=== PATIENT | female | born 1975 | race Two or more races ===

== ENCOUNTER 2024-09-09 15:54 | Emergency (ER) | payer OTHER ==
[~2024-09-09] VITALS: Ht 170.2 cm; Wt 71.2 kg
[2024-09-09] MEDS ORDERED: GRALISE600 MG PO (15:59)
[2024-09-09] MEDS ORDERED: CONZIP100 MG (15:59)
[2024-09-09] MEDS ORDERED: CLONAZEPAM2 M1 PO (16:00)
[2024-09-09] MEDS ORDERED: WELLBUTRIN SR100 MG (16:00)
[2024-09-09] MEDS ORDERED: COZAAR25 MG (16:01)
[2024-09-09] MEDS ORDERED: SINGULAIR10 MG PO (16:01)
[2024-09-09] MEDS ORDERED: ORPHENADRINE CITRATE 30 MG/ML AMPUL IM ONE (18:00)
[2024-09-09] MEDS ORDERED: KETOROLAC TROMETHAMINE 60 MG VIAL IM ONE (18:00)
[2024-09-09] MEDS ORDERED: DEXAMETHASONE SODIUM PHOSPHATE 4 MG/ML VIAL IM ONE (18:00)
[2024-09-09] MEDS ORDERED: ORPHENADRINE CITRATE 100 MG TABLET PO STA (18:16)
== END 2024-09-09 18:20 | disposition home or self-care (01) ==
LOC: ER 15:56
DX: M54.50 Low back pain, unspecified (principal); Z91.030 Bee allergy status; I10 Essential (primary) hypertension; J45.909 Unspecified asthma, uncomplicated; M32.8 Other forms of systemic lupus erythematosus; M79.7 Fibromyalgia; M06.8A Other specified rheumatoid arthritis, other specified site

== ENCOUNTER → 2024-10-29 | Emergency (ER) | payer OTHER ==
[~2024-10-29] MED LIST: CLONAZEPAM2 M1 PO; CONZIP100 MG; COZAAR25 MG; GRALISE600 MG PO; SINGULAIR10 MG PO; WELLBUTRIN SR100 MG
== END | disposition left against medical advice (07) ==
LOC: ER 14:37
DX: Z53.21 Procedure and treatment not carried out due to patient leaving prior to being seen by health care provider (principal)

== ENCOUNTER 2024-11-17 13:08 | Inpatient (IN) | payer OTHER ==
[~2024-11-17] VITALS: Ht 170.2 cm; Wt 66.7 kg
--- NOTE | 2024-11-17 13:28 | NUR ---
SE RECIBE PTE ALERTA Y ORIENTADA X3 EN AMBULANCIA. REFIERE ABSCESO EN GLUTEO LILIAM Y FIEBRE HACE 3 COVARRUBIAS. SE MIDE SV Y SE UBICA
[2024-11-17] MEDS ORDERED: 0.9 % SODIUM CHLORIDE 1,000 ML IV STA (13:53)
--- NOTE | 2024-11-17 14:43 | NUR ---
SE ORIENTA PTE SOBRE TX A SEGUIR, EL MISMO REFIERE ENTENDER. SE MANA MUESTRA DE LAB, SE COLOCA HL EN CANALIZACION #22 DE AMBULANCIA Y SE COLOCA IV FLUIDS
[2024-11-17 15:16] LABS: CALCIUM 8.5 mg/dL (8.5-10.1); CREATININE SERUM 0.62 mg/dL (0.55-1.02); GFR 102.31; POTASSIUM 3.21 mEq/L (3.5-5.1)
[2024-11-17] MEDS ORDERED: KETOROLAC TROMETHAMINE 30 MG VIAL IV ONE (15:30)
[2024-11-17 15:32] LABS: PH,URINE 6.5 (5.0-8.0); URINE APPEARANCE Cloudy; URINE BILIRRUBIN Negative (NEGATIVE); URINE BLOOD Negative; URINE COLOR Yellow; URINE GLUCOSE Negative (NEGATIVE); URINE KETONE Negative (NEGATIVE); URINE LEUKOCYTE Small; URINE NITRATE Positive; URINE PROTEIN Trace (NEGATIVE); URINE UROBILINOGEN 0.2 E.U./dl
[2024-11-17 15:37] LABS: URINE CAST 1.61 uL (0.0-1.40); URINE EPITHELIAL CELLS 22.4 uL (0.0-38.8); URINE RBC 8.8 uL (0.0-20.8)
[2024-11-17] MEDS ORDERED: KETOROLAC TROMETHAMINE 30 MG VIAL ONE ×2 (15:43→22:07)
[2024-11-17] MEDS ORDERED: BUTALB/ACETAMINOPHEN/CAFFEINE 1 TAB TABLET PO ONE (15:57)
[2024-11-17] MEDS ORDERED: BUTALB/ACETAMINOPHEN/CAFFEINE 1 TAB TABLET PO STA (16:02)
[2024-11-17 16:22] LABS: HEMATOCRIT 30.3 % (36.0-45.00); HEMOGLOBIN 9.5 g/dL (12.0-15.00); MEAN CORPUSCULAR HEMOGLOBIN 22.5 pg (27.00-32.0); MEAN CORPUSCULAR HGB CONC 31.3 g/dl (32.0-36.0); PLATELET COUNT 425 K/uL (150-450); RED BLOOD COUNT 4.21 M/uL (4.00-6.00); RED CELL DISTRIBUTION WIDTH 17.3 % (11.5-14.5)
[2024-11-17 16:43] LABS: URINE BACTERIA > 9821.5 uL (0.0-1933)
[2024-11-17] MEDS ORDERED: CEFTRIAXONE SODIUM 2,000 MG VIAL ONE (17:11)
[2024-11-17] MEDS ORDERED: CEFTRIAXONE SODIUM 2,000 MG VIAL IV ONE (17:15)
[2024-11-17] MEDS ORDERED: KETOROLAC TROMETHAMINE 15 MG VIAL IU ONE (22:00)
[2024-11-17] MEDS ORDERED: MORPHINE SULFATE 4 MG/ML CARTRIDGE IV ONE (22:00)
[2024-11-17] MEDS ORDERED: KETOROLAC TROMETHAMINE 15 MG VIAL IV STA (22:20)
[2024-11-17] MEDS ORDERED: ACETAMINOPHEN 500 MG GEL..CAP PO PRN (23:30)
[2024-11-17] MEDS ORDERED: POTASSIUM BICARBONATE/CIT AC 25 MEQ TABLET.EFF PO ONE (23:30)
[2024-11-17] MEDS ORDERED: 0.9 % SODIUM CHLORIDE 1,000 ML IV SCH (23:30)
[2024-11-18 02:30] VITALS: BP 95/65; O2SAT 100
[2024-11-18 04:25] LABS: INR 0.98; PARTIAL THROMBOPLASTIN TIME 33.9 SECONDS (22.0-34.0); PROTHROMBIN TIME 10.7 SECONDS (9.0-11.5)
[2024-11-18 04:40] VITALS: BP 85/51; O2SAT 95
[2024-11-18] MEDS ORDERED: BUTALB/ACETAMINOPHEN/CAFFEINE 1 TAB TABLET PO PRN (08:30)
[2024-11-18] MEDS ORDERED: LOSARTAN POTASSIUM 50 MG TABLET PO SCH (09:00)
[2024-11-18] MEDS ORDERED: ENOXAPARIN SODIUM 40 MG/0.4 ML SYRINGE SUBCUTANEO SCH (09:00)
[2024-11-18] MEDS ORDERED: BUPROPION HCL 150 MG TABLET.SA PO SCH (09:00)
[2024-11-18] MEDS ORDERED: GABAPENTIN 300 MG CAPSULE PO SCH (09:00)
[2024-11-18] MEDS ORDERED: HYDROXYCHLOROQUINE SULFATE 200 MG TABLET PO SCH (09:00)
[2024-11-18] MEDS ORDERED: CEFTRIAXONE SODIUM 2,000 MG in 0.9 % SODIUM CHLORIDE 100 ML IV SCH (09:00)
[2024-11-18] MEDS ORDERED: FAMOTIDINE/PF 20 MG in 0.9 % SODIUM CHLORIDE 8 ML IV PUSH SCH (09:00)
[2024-11-18 09:15] VITALS: BP 94/54; O2SAT 100
[2024-11-18] MEDS ORDERED: HYDROCHLOROTHIAZIDE 25 MG TABLET PO NR (10:30)
[2024-11-18] MEDS ORDERED: NIFEDIPINE 60 MG TAB.SA.OSM PO NR (10:30)
[2024-11-18] MEDS ORDERED: FAMOTIDINE/PF 20 MG/2 ML VIAL ONE (12:00)
[2024-11-18] MEDS ORDERED: POTASSIUM BICARBONATE/CIT AC 25 MEQ TABLET.EFF PO SCH (13:00)
[2024-11-18] MEDS ORDERED: CLONAZEPAM 1 MG TABLET PO SCH (17:00)
[2024-11-18] MEDS ORDERED: MONTELUKAST SODIUM 10 MG TABLET PO SCH (17:00)
[2024-11-18] MEDS ORDERED: LACTOBACILLUS ACIDOPHILUS 1 CAP CAP PO SCH (17:00)
[2024-11-18 18:30] VITALS: BP 86/49
[2024-11-18] MEDS ORDERED: MORPHINE SULFATE 2 MG/ML CARTRIDGE IV PRN (18:30)
[2024-11-18] MEDS ORDERED: TRAZODONE HCL 50 MG TABLET PO SCH (21:00)
[2024-11-19 01:44] VITALS: BP 96/57
[2024-11-19] MEDS ORDERED: MEROPENEM 500 MG/VIAL VIAL IV SCH (08:00)
[2024-11-19 08:21] VITALS: BP 88/51; O2SAT 98
[2024-11-19] MEDS ORDERED: NIFEDIPINE 60 MG TAB.SA.OSM PO SCH (09:00)
[2024-11-19] MEDS ORDERED: HYDROCHLOROTHIAZIDE 25 MG TABLET PO SCH (09:00)
[2024-11-19 09:20] LABS: MEAN CELL VOLUME 71.3 fL (80.00-100.00); MEAN CORPUSCULAR HGB CONC 32.4 g/dl (32.0-36.0); PLATELET COUNT 318 K/uL (150-450); RED BLOOD COUNT 3.26 M/uL (4.00-6.00); RED CELL DISTRIBUTION WIDTH 17.4 % (11.5-14.5)
[2024-11-19 09:24] LABS: HEMATOCRIT 23.2 % (36.0-45.00)
[2024-11-19 09:25] LABS: HEMOGLOBIN 7.5 g/dL (12.0-15.00)
[2024-11-19 10:12] LABS: BILIRUBIN TOTAL 0.27 mg/dL (0.3-1.2); CALCIUM 8.2 mg/dL (8.5-10.1); CREATININE SERUM 0.54 mg/dL (0.55-1.02); GFR 119.99; GLOBULINA 3.5 G/DL (2.4-3.5); MAGNESIUM 2.2 mg/dL (1.8-2.4); PHOSPHOROUS 3.7 mg/dL (2.5-4.9); POTASSIUM 3.99 mEq/L (3.5-5.1); TOTAL PROTEIN 6.5 gm/dL (6.4-8.2)
[2024-11-19 10:15] LABS: C-REACTIVE PROTEIN 13.5 MG/DL (0.00-0.29)
[2024-11-19] MEDS ORDERED: MORPHINE SULFATE 4 MG/ML CARTRIDGE IV PRN (13:11)
[2024-11-19 17:00] VITALS: BP 100/60; O2SAT 100
[2024-11-19] MEDS ORDERED: POLYETHYLENE GLYCOL 3350 17 GM BLIST.PACK PO SCH (17:00)
[2024-11-19] MEDS ORDERED: CLONAZEPAM 1 MG TABLET PO SCH (17:00)
[2024-11-19 17:01] LABS: ob NEGATIVE (NEGATIVE)
[2024-11-20 02:03] VITALS: BP 82/42
[2024-11-20 06:36] LABS: HEMATOCRIT 27.3 % (36.0-45.00); MEAN CELL VOLUME 73.3 fL (80.00-100.00); MEAN CORPUSCULAR HEMOGLOBIN 23.3 pg (27.00-32.0); MEAN CORPUSCULAR HGB CONC 31.8 g/dl (32.0-36.0); PLATELET COUNT 330 K/uL (150-450); RED BLOOD COUNT 3.73 M/uL (4.00-6.00); RED CELL DISTRIBUTION WIDTH 17.6 % (11.5-14.5)
[2024-11-20 07:02] LABS: HEMOGLOBIN 8.7 g/dL (12.0-15.00)
[2024-11-20 08:46] LABS: URINE APPEARANCE Clear; URINE BILIRRUBIN Negative (NEGATIVE); URINE BLOOD Negative; URINE COLOR Yellow; URINE GLUCOSE Negative (NEGATIVE); URINE KETONE Negative (NEGATIVE); URINE LEUKOCYTE Negative; URINE NITRATE Negative; URINE PROTEIN Negative (NEGATIVE); URINE UROBILINOGEN 0.2 E.U./dl
[2024-11-20 08:48] LABS: URINE BACTERIA 18.3 uL (0.0-1933); URINE EPITHELIAL CELLS 16.5 uL (0.0-38.8); URINE RBC 4.1 uL (0.0-20.8); URINE WBC 10.7 uL (0.0-23.2)
[2024-11-20 09:01] VITALS: BP 101/65
[2024-11-20] MEDS ORDERED: CLONAZEPAM 1 MG TABLET PO SCH (10:29)
[2024-11-20] MEDS ORDERED: MORPHINE SULFATE 4 MG/ML CARTRIDGE IV PRN (10:41)
[2024-11-20 17:42] VITALS: BP 115/67
[2024-11-20] MEDS ORDERED: FAMOtidine 20 MG TABLET PO SCH (21:00)
[2024-11-21 08:56] VITALS: BP 95/58
[2024-11-21 17:30] VITALS: BP 121/75; O2SAT 98
[2024-11-22 02:36] VITALS: BP 108/64
[2024-11-22 07:47] LABS: HEMATOCRIT 28.3 % (36.0-45.00); HEMOGLOBIN 9.2 g/dL (12.0-15.00); MEAN CELL VOLUME 72.4 fL (80.00-100.00); MEAN CORPUSCULAR HEMOGLOBIN 23.5 pg (27.00-32.0); MEAN CORPUSCULAR HGB CONC 32.4 g/dl (32.0-36.0); PLATELET COUNT 363 K/uL (150-450); RED BLOOD COUNT 3.91 M/uL (4.00-6.00); RED CELL DISTRIBUTION WIDTH 17.1 % (11.5-14.5)
[2024-11-22 07:55] LABS: CALCIUM 9.2 mg/dL (8.5-10.1); CREATININE SERUM 0.5 mg/dL (0.55-1.02); GFR 131.13; POTASSIUM 4.92 mEq/L (3.5-5.1)
[2024-11-22 08:47] VITALS: BP 112/77
[2024-11-22] MEDS ORDERED: MORPHINE SULFATE 4 MG/ML CARTRIDGE IV PRN (14:30)
[2024-11-22 16:00] VITALS: BP 103/67
[2024-11-23 02:00] VITALS: BP 113/63
[2024-11-23 08:15] VITALS: BP 115/65
[2024-11-23 16:00] VITALS: BP 116/75; O2SAT 100
[2024-11-23] MEDS ORDERED: FLUCONAZOLE 100 MG TABLET PO SCH (17:00)
[2024-11-23] MEDS ORDERED: IPRATROPIUM BROMIDE 0.5 MG/2.5 ML AMPUL.NEB IH SCH (18:00)
[2024-11-24 01:37] VITALS: BP 102/67
[2024-11-24 07:11] LABS: HEMATOCRIT 29.1 % (36.0-45.00); HEMOGLOBIN 9.6 g/dL (12.0-15.00); MEAN CELL VOLUME 72.5 fL (80.00-100.00); MEAN CORPUSCULAR HEMOGLOBIN 23.9 pg (27.00-32.0); MEAN CORPUSCULAR HGB CONC 32.9 g/dl (32.0-36.0); PLATELET COUNT 415 K/uL (150-450); RED BLOOD COUNT 4.01 M/uL (4.00-6.00); RED CELL DISTRIBUTION WIDTH 17.7 % (11.5-14.5)
[2024-11-24 08:40] VITALS: BP 108/67
== END 2024-11-24 20:22 | disposition home or self-care (01) | DRG 690 ==
LOC: ER 13:08 → MEDJ 23:27 → MEDI 11-19 10:55 → MEDJ 11-24 15:14
PROVIDERS: Emergency Medicine; Internal Medicine Infectious Disease; ADMIT Student in an Organized Health Care Education/Training Program; ATTEND Student in an Organized Health Care Education/Training Program
PROC: BW21ZZZ Computerized Tomography (CT Scan) of Abdomen and Pelvis (ICD-10-PCS; 2024-11-17)
PROC: 8E0ZXY6 Isolation (ICD-10-PCS; principal; 2024-11-19)
PROC: 302A3N1 Transfusion of Nonautologous Red Blood Cells into Bone Marrow, Percutaneous Approach (ICD-10-PCS; 2024-11-19)
PROC: 3E0F7GC Introduction of Other Therapeutic Substance into Respiratory Tract, Via Natural or Artificial Opening (ICD-10-PCS; 2024-11-23)
PROC: 02HV33Z Insertion of Infusion Device into Superior Vena Cava, Percutaneous Approach (ICD-10-PCS; 2024-11-24)
DX: N39.0 Urinary tract infection, site not specified (principal); D62 Acute posthemorrhagic anemia; D64.89 Other specified anemias; E87.6 Hypokalemia; J45.998 Other asthma; I10 Essential (primary) hypertension; E78.5 Hyperlipidemia, unspecified; M35.00 Sjogren syndrome, unspecified; M32.9 Systemic lupus erythematosus, unspecified; B96.20 Unspecified Escherichia coli [E. coli] as the cause of diseases classified elsewhere

== ENCOUNTER 2025-01-19 11:13 | Emergency (ER) | payer OTHER ==
[~2025-01-19] VITALS: Ht 170.2 cm; Wt 77.6 kg
[2025-01-19] MEDS ORDERED: KETOROLAC TROMETHAMINE 60 MG VIAL IM STA (13:44)
[2025-01-19 15:54] LABS: HEMATOCRIT 33.3 % (36.0-45.00); HEMOGLOBIN 10.7 g/dL (12.0-15.00); MEAN CELL VOLUME 75.8 fL (80.00-100.00); MEAN CORPUSCULAR HEMOGLOBIN 24.3 pg (27.00-32.0); PLATELET COUNT 398 K/uL (150-450)
[2025-01-19] MEDS ORDERED: DEXAMETHASONE SODIUM PHOSPHATE 4 MG/ML VIAL IM ONE (19:00)
[2025-01-19] MEDS ORDERED: BUTALB/ACETAMINOPHEN/CAFFEINE 1 TAB TABLET PO ONE (19:00)
[2025-01-19] MEDS ORDERED: IBUPROFEN600 MG PO (19:09)
== END 2025-01-19 19:36 | disposition home or self-care (01) ==
LOC: ER 11:14
DX: R53.81 Other malaise (principal); R51.9 Headache, unspecified; Z20.822 Contact with and (suspected) exposure to COVID-19

== ENCOUNTER 2025-03-05 11:23 | Emergency (ER) | payer OTHER ==
[~2025-03-05] VITALS: Ht 170.2 cm; Wt 78.9 kg
[~2025-03-05 11:23] MED LIST changes: +IBUPROFEN600 MG PO
[2025-03-05] MEDS ORDERED: PEPCID AC20 MG PO (11:46)
[2025-03-05] MEDS ORDERED: COZAAR25 MG PO (11:48)
[2025-03-05] MEDS ORDERED: BUTALB-ACETAMI1 EACH PO (11:48)
[2025-03-05] MEDS ORDERED: HYDROXYCHLOROQ100 MG PO (11:49)
[2025-03-05] MEDS ORDERED: CLONAZEPAM1 MG PO (11:50)
[2025-03-05] MEDS ORDERED: NIFEDIPINE PO (11:51)
[2025-03-05] MEDS ORDERED: KETOROLAC TROMETHAMINE 30 MG VIAL IV ONE (12:00)
[2025-03-05] MEDS ORDERED: KETOROLAC TROMETHAMINE 30 MG VIAL ONE ×2 (12:28→12:52)
[2025-03-05 13:10] LABS: BASO % 0.3 % (0.1-1.2); EOS # 0.42 (0.04-0.54); EOS % 6.3 % (0.7-7.0); HEMOGLOBIN 11.3 g/dL (11.2-15.7); LYMPH # 2.36 (1.18-3.74); LYMPH % 35.5 % (19.3-53.1); MEAN CORPUSCULAR HEMOGLOBIN 25.1 pg (25.6-32.2); MONO # 0.41 (0.24-0.82); MONO % 6.2 % (4.7-12.5); NEUT # 3.42 (1.56-6.13); NEUT % 51.5 % (34.0-71.1); PLATELET COUNT 458 K/uL (163-369); RED CELL DISTRIBUTION WIDTH 17.1 % (11.6-14.4)
[2025-03-05] MEDS ORDERED: ONDANSETRON HCL 2 MG/ML VIAL IV ONE (13:45)
[2025-03-05 14:47] LABS: PH,URINE 5.5 (5.0-8.0); URINE APPEARANCE Clear; URINE BILIRRUBIN Negative (NEGATIVE); URINE BLOOD Negative; URINE COLOR Yellow; URINE GLUCOSE Negative (NEGATIVE); URINE KETONE Negative (NEGATIVE); URINE LEUKOCYTE Moderate; URINE NITRATE Negative; URINE PROTEIN Negative (NEGATIVE); URINE UROBILINOGEN 0.2 E.U./dl
[2025-03-05 15:31] LABS: URINE BACTERIA > 9821.5 uL (0.0-1933); URINE CAST 0.73 uL (0.0-1.40); URINE EPITHELIAL CELLS 49.8 uL (0.0-38.8); URINE RBC 5.5 uL (0.0-20.8)
[2025-03-05 15:32] LABS: URINE MUCUS SCANT
[2025-03-05] MEDS ORDERED: levoFLOXacin IN DEXTROSE 5 % 500MG/100ML PIGGYBAG IV ONE (16:00)
[2025-03-05] MEDS ORDERED: MORPHINE SULFATE 4 MG/ML VIAL IV ONE (16:00)
[2025-03-05] MEDS ORDERED: INTESTINEX680 M1 PO (18:39)
[2025-03-05] MEDS ORDERED: LACTOBACILLUS ACIDOPHILUS 1 CAP CAP PO ONE ×2 (18:45)
[2025-03-05 18:54] VITALS: BP 113/74; O2SAT 99
== END 2025-03-05 18:55 ==
LOC: ER 11:23
PROVIDERS: Emergency Medicine
DX: N39.0 Urinary tract infection, site not specified (principal); M54.50 Low back pain, unspecified

== ENCOUNTER 2025-03-14 12:31 | Emergency (ER) | payer OTHER ==
[~2025-03-14] VITALS: Ht 170.2 cm; Wt 78.9 kg
[~2025-03-14 12:31] MED LIST changes: +BUTALB-ACETAMI1 EACH PO; +CLONAZEPAM1 MG PO; +COZAAR25 MG PO; +HYDROXYCHLOROQ100 MG PO; +INTESTINEX680 M1 PO; +NIFEDIPINE PO; +PEPCID AC20 MG PO
[2025-03-14] MEDS ORDERED: NEURONTIN800 MG (12:43)
[2025-03-14] MEDS ORDERED: MORPHINE SULFATE 4 MG/ML VIAL IV STA (16:13)
[2025-03-14] MEDS ORDERED: KETOROLAC TROMETHAMINE 30 MG VIAL IV STA (16:13)
[2025-03-14] MEDS ORDERED: KETOROLAC TROMETHAMINE 30 MG VIAL ONE (16:14)
[2025-03-14 16:39] LABS: BASO % 0.1 % (0.1-1.2); EOS # 0.04 (0.04-0.54); EOS % 0.4 % (0.7-7.0); HEMATOCRIT 31.3 % (34.1-44.9); HEMOGLOBIN 10.1 g/dL (11.2-15.7); LYMPH # 1.17 (1.18-3.74); LYMPH % 12.3 % (19.3-53.1); MEAN CORPUSCULAR HEMOGLOBIN 24.9 pg (25.6-32.2); NEUT # 8.18 (1.56-6.13); NEUT % 85.8 % (34.0-71.1); PLATELET COUNT 415 K/uL (163-369); RED BLOOD COUNT 4.06 M/uL (3.93-5.22); RED CELL DISTRIBUTION WIDTH 16.1 % (11.6-14.4)
[2025-03-14 17:02] LABS: CALCIUM 8.6 mg/dL (8.5-10.1); CREATININE SERUM 1.16 mg/dL (0.55-1.02); GFR 49.65; POTASSIUM 3.5 mEq/L (3.5-5.1)
[2025-03-14 17:03] LABS: URINE APPEARANCE Clear; URINE BILIRRUBIN Negative (NEGATIVE); URINE BLOOD Negative; URINE COLOR Yellow; URINE GLUCOSE Negative (NEGATIVE); URINE KETONE Trace (NEGATIVE); URINE LEUKOCYTE Trace; URINE NITRATE Negative; URINE PROTEIN Negative (NEGATIVE); URINE UROBILINOGEN 0.2 E.U./dl
[2025-03-14 17:07] LABS: URINE BACTERIA 855.4 uL (0.0-1933); URINE RBC 8.3 uL (0.0-20.8); URINE WBC 15.3 uL (0.0-23.2)
[2025-03-14 17:14] LABS: URINE CAST 0.29 uL (0.0-1.40)
[2025-03-14] MEDS ORDERED: TRAMADOL HCL 50 MG TABLET PO STA (21:15)
== END 2025-03-14 21:29 | disposition home or self-care (01) ==
LOC: ER 12:31
DX: R10.9 Unspecified abdominal pain (principal)

== ENCOUNTER 2025-03-26 17:16 | Emergency (ER) | payer OTHER ==
[~2025-03-26] VITALS: Ht 170.2 cm; Wt 78.9 kg
[~2025-03-26 17:16] MED LIST changes: +NEURONTIN800 MG
[2025-03-26 17:28] VITALS: BP 115/80; O2SAT 99
[2025-03-26] MEDS ORDERED: FAMOTIDINE/PF 20 MG in 0.9 % SODIUM CHLORIDE 8 ML IV PUSH STA (17:35)
[2025-03-26] MEDS ORDERED: KETOROLAC TROMETHAMINE 30 MG VIAL ONE (17:42)
[2025-03-26] MEDS ORDERED: ONDANSETRON HCL 2 MG/ML VIAL ONE (17:43)
[2025-03-26] MEDS ORDERED: CEFTRIAXONE SODIUM 1,000 MG VIAL ONE (17:43)
[2025-03-26] MEDS ORDERED: CEFTRIAXONE SODIUM 1,000 MG VIAL IV ONE (17:45)
[2025-03-26] MEDS ORDERED: TRIAMCINOLONE ACETONIDE 40 MG/ML VIAL IM ONE (17:45)
[2025-03-26] MEDS ORDERED: ONDANSETRON HCL 2 MG/ML VIAL IV ONE (17:45)
[2025-03-26] MEDS ORDERED: KETOROLAC TROMETHAMINE 30 MG VIAL IV ONE (17:45)
[2025-03-26 18:14] LABS: BASO % 0.6 % (0.1-1.2); EOS # 0.25 (0.04-0.54); EOS % 2.8 % (0.7-7.0); HEMATOCRIT 33.6 % (34.1-44.9); HEMOGLOBIN 10.9 g/dL (11.2-15.7); LYMPH # 3.74 (1.18-3.74); LYMPH % 42.5 % (19.3-53.1); MEAN CORPUSCULAR HEMOGLOBIN 25.8 pg (25.6-32.2); MONO # 0.55 (0.24-0.82); MONO % 6.3 % (4.7-12.5); NEUT # 4.19 (1.56-6.13); NEUT % 47.6 % (34.0-71.1); PLATELET COUNT 339 K/uL (163-369); RED BLOOD COUNT 4.23 M/uL (3.93-5.22); RED CELL DISTRIBUTION WIDTH 16.7 % (11.6-14.4)
[2025-03-26 18:17] LABS: URINE APPEARANCE Clear; URINE BILIRRUBIN Negative (NEGATIVE); URINE BLOOD Negative; URINE COLOR Yellow; URINE GLUCOSE Negative (NEGATIVE); URINE KETONE Negative (NEGATIVE); URINE LEUKOCYTE Negative; URINE NITRATE Negative; URINE PROTEIN Negative (NEGATIVE); URINE UROBILINOGEN 0.2 E.U./dl
[2025-03-26 18:21] LABS: URINE BACTERIA 8.5 uL (0.0-1933); URINE EPITHELIAL CELLS 3.3 uL (0.0-38.8); URINE RBC 3.3 uL (0.0-20.8); URINE WBC 3.1 uL (0.0-23.2)
[2025-03-26] MEDS ORDERED: TRIAMCINOLONE ACETONIDE 40 MG/ML VIAL ONE (18:21)
[2025-03-26 18:22] LABS: URINE CAST 0.14 uL (0.0-1.40)
[2025-03-26 18:40] LABS: ALBUMIN 3.9 gm/dL (3.4-5.0); BILIRUBIN TOTAL 0.14 mg/dL (0.3-1.2); CALCIUM 8.7 mg/dL (8.5-10.1); CREATININE SERUM 0.8 mg/dL (0.55-1.02); GFR 76.24; GLOBULINA 3.9 G/DL (2.4-3.5); TOTAL PROTEIN 7.8 gm/dL (6.4-8.2)
[2025-03-26 18:51] LABS: POTASSIUM 2.91 mEq/L (3.5-5.1)
[2025-03-26] MEDS ORDERED: POTASSIUM CHLORIDE 10 MEQ CAPSULE PO ONE (19:00)
[2025-03-26] MEDS ORDERED: BUTALB/ACETAMINOPHEN/CAFFEINE 1 TAB TABLET PO ONE ×2 (19:26→19:45)
[2025-03-26] MEDS ORDERED: DICLOFENAC SODI75 MG PO (20:43)
== END 2025-03-26 20:53 | disposition home or self-care (01) ==
LOC: ER 17:16
PROVIDERS: General Practice
DX: R30.0 Dysuria (principal); I10 Essential (primary) hypertension; M54.50 Low back pain, unspecified

== ENCOUNTER 2025-06-21 21:57 | Emergency (ER) | payer OTHER ==
[~2025-06-21] VITALS: Ht 170.2 cm; Wt 84.4 kg
[~2025-06-21 21:57] MED LIST changes: +DICLOFENAC SODI75 MG PO
[2025-06-21] MEDS ORDERED: RISPERDAL0.5 MG (22:29)
[2025-06-21] MEDS ORDERED: ZOLOFT25 MG PO (22:30)
[2025-06-22 00:45] LABS: BASO % 0.4 % (0.1-1.2); EOS # 0.15 (0.04-0.54); EOS % 3.0 % (0.7-7.0); LYMPH # 2.10 (1.18-3.74); LYMPH % 42.6 % (19.3-53.1); MEAN PLATELET VOLUME 9.00 fl (9.4-12.4); MONO # 0.49 (0.24-0.82); MONO % 9.9 % (4.7-12.5); NEUT # 2.16 (1.56-6.13); NEUT % 43.9 % (34.0-71.1); RED CELL DISTRIBUTION WIDTH 15.9 % (11.6-14.4)
[2025-06-22 00:53] LABS: BUN CREA RATIO 16.0 (7.0-25.0); CREATININE SERUM 0.64 mg/dL (0.55-1.02); GFR 98.22; GLUCOSE FASTING 107.0 mg/dL (65-100); OSMOLALITY SERUM 275.0 MOSM/KG (275-295)
[2025-06-22 01:35] LABS: URINE APPEARANCE Clear; URINE BILIRRUBIN Negative (NEGATIVE); URINE BLOOD Negative; URINE COLOR Yellow; URINE GLUCOSE Negative (NEGATIVE); URINE KETONE Negative (NEGATIVE); URINE LEUKOCYTE Negative; URINE NITRATE Negative; URINE PROTEIN Negative (NEGATIVE); URINE UROBILINOGEN 0.2 E.U./dl
[2025-06-22 01:39] LABS: URINE BACTERIA 133.1 uL (0.0-1933); URINE EPITHELIAL CELLS 8.6 uL (0.0-38.8); URINE WBC 4.6 uL (0.0-23.2)
[2025-06-22 01:40] LABS: URINE CAST 0.00 uL (0.0-1.40); URINE RBC 1.3 uL (0.0-20.8)
[2025-06-22] MEDS ORDERED: EFFER-K 20 MEQ20 MEQ PO (03:43)
== END 2025-06-22 03:54 ==
LOC: ER 22:07
DX: F41.9 Anxiety disorder, unspecified (principal); E86.0 Dehydration

== ENCOUNTER 2025-07-23 13:21 | Emergency (ER) | payer OTHER ==
[~2025-07-23] VITALS: Ht 170.2 cm; Wt 83.5 kg
[~2025-07-23 13:21] MED LIST changes: +EFFER-K 20 MEQ20 MEQ PO; +RISPERDAL0.5 MG; +ZOLOFT25 MG PO
[2025-07-23 16:31] LABS: BASO % 0.3 % (0.1-1.2); EOS # 0.25 (0.04-0.54); EOS % 2.7 % (0.7-7.0); LYMPH # 3.95 (1.18-3.74); LYMPH % 43.2 % (19.3-53.1); MEAN PLATELET VOLUME 8.80 fl (9.4-12.4); MONO # 0.67 (0.24-0.82); MONO % 7.3 % (4.7-12.5); NEUT # 4.23 (1.56-6.13); NEUT % 46.3 % (34.0-71.1); RED CELL DISTRIBUTION WIDTH 15.9 % (11.6-14.4)
[2025-07-23 16:42] LABS: URINE APPEARANCE Clear; URINE BILIRRUBIN Negative (NEGATIVE); URINE BLOOD Negative; URINE COLOR Yellow; URINE GLUCOSE Negative (NEGATIVE); URINE KETONE Negative (NEGATIVE); URINE LEUKOCYTE Negative; URINE NITRATE Negative; URINE PROTEIN Negative (NEGATIVE); URINE UROBILINOGEN 0.2 E.U./dl
[2025-07-23 16:42] LABS: ERYTHROCYTE SEDIMENTATION RATE 28 mm/hr (0-20)
[2025-07-23 16:49] LABS: URINE BACTERIA 20.3 uL (0.0-1933); URINE EPITHELIAL CELLS 4.7 uL (0.0-38.8); URINE RBC 3.8 uL (0.0-20.8)
[2025-07-23 17:04] LABS: URINE CAST 0.00 uL (0.0-1.40); URINE WBC 1.0 uL (0.0-23.2)
[2025-07-23 17:13] LABS: ALT/SGPT 23.0 U/L (12-78); AST/SGOT 14.0 U/L (15-37); BILIRUBIN TOTAL 0.34 mg/dL (0.3-1.2); BUN CREA RATIO 16.0 (7.0-25.0); CREATININE SERUM 0.79 mg/dL (0.55-1.02); GFR 77.03; GLOBULINA 4.4 G/DL (2.4-3.5); GLUCOSE FASTING 85.0 mg/dL (65-100); OSMOLALITY SERUM 269.0 MOSM/KG (275-295)
[2025-07-23] MEDS ORDERED: KETOROLAC TROMETHAMINE 30 MG VIAL ONE (18:28)
== END 2025-07-23 22:04 | disposition home or self-care (01) ==
LOC: ER 13:21
PROVIDERS: Physician Assistant Medical
DX: L02.31 Cutaneous abscess of buttock (principal); I10 Essential (primary) hypertension